=== PATIENT | male | born 1990 | race African-American/Black ===

== ENCOUNTER 2018-11-12 02:32 | Emergency (ER) | payer OTHER ==
[2018-11-12] MEDS: LORazepam 2 MG/ML INJ IV STA (02:45)
[2018-11-12] MEDS: SODIUM CHLORIDE 0.9% 1,000 ML IV ONE (02:45)
--- NOTE | 2018-11-12 03:06 | XR ---
EXAM: XR Chest, 2 Views CLINICAL HISTORY: Chest pain and shortness of breath. TECHNIQUE: Frontal and lateral views of the chest. COMPARISON: No relevant prior studies available. FINDINGS: Lungs: Diminished lung volumes without definite focal consolidation. Pulmonary vascular crowding is presumed related to poor lung expansion. Pleural space: Unremarkable. No pneumothorax. Heart: Unremarkable. No cardiomegaly. Mediastinum: Unremarkable. Bones/joints: Unremarkable. IMPRESSION: Diminished lung volumes without focal consolidation or definite acute cardiopulmonary process identified.
--- NOTE | 2018-11-12 03:23 | ED ---
Chest Pain HPI - General Chief Complaint: Chest Pain Stated Complaint: SOB, Chest Pain Time Seen by Provider: 11/12/18 02:35 Source: EMS Mode of arrival: EMS Limitations: no limitations - History of Present Illness Initial Comments: Cruz is a previously healthy 28-year-old -[place] male who presents the emergency department today via EMS for evaluation of left-sided chest pain and trouble breathing. Patient reports to smoking marijuana earlier in the evening, he subsequently developed a sharp left-sided chest pain which made it difficult to breathe. He then contacted EMS for transfer to the hospital. Patient has no known cardiac history no history of early cardiac in the family he has no history of DVT or PE. He denies any chest wall trauma. Patient denies any recent illness, fevers, chills, nausea, vomiting, URI-like symptoms. Patient reports the pain is left-sided sharp and constant with no exacerbating or relieving factors. There is no position that makes the pain more comfortable. Pain is not associated with any diaphoresis lightheadedness or near-syncope. - Related Data Allergies Allergy/AdvReac Type Severity Reaction Status Date / Time No Known Allergies Allergy Verified 11/12/18 02:40 Review of Systems ROS Statement: Those systems with pertinent positive or pertinent negative responses have been documented in the HPI. ROS Other: All systems not noted in ROS Statement are negative. EKG Findings - EKG Comments: EKG Findings:: EKG obtained at 2:38 AM, rate is 110 rhythm is sinus tachycardia there is a normal axis there are normal intervals there are no acute ST elevations or depressions there is no evidence of acute ischemia or infarction. There is significant artifact but no acute findings on EKG. Past Medical History Past Medical History: No Reported History History of Any Multi-Drug Resistant Organisms: None Reported Past Surgical History: No Surgical Hx Reported Past Psychological History: No Psychological Hx Reported Smoking Status: Current every day smoker Past Alcohol Use History: Occasional Past Drug Use History: Marijuana General Exam - General Exam Comments Initial Comments: Physical Exam GENERAL: Patient is well-developed and well-nourished. Patient is nontoxic and well-hydrated and is in no distress. Patient smells strongly of marijuana HENT: Normocephalic, Atraumatic. EYES: PERRL, EOMI PULMONARY: Unlabored respirations. No audible rales rhonchi or wheezing was noted. CARDIOVASCULAR: There is a regular rate and rhythm without any murmurs gallops or rubs. ABDOMEN: Soft and nontender with normal bowel sounds. SKIN: Skin is clear with no lesions or rashes and otherwise unremarkable. : Deferred NEUROLOGIC: Patient is alert and oriented x3. Moving all extremities spontaneously MUSCULOSKELETAL: Normal extremities with adequate strength and full range of motion. No lower extremity swelling or edema. No calf tenderness. PSYCHIATRIC: Normal psychiatric evaluation. Limitations: no limitations Limitations: no limitations Course Vital Signs 11/12/18 11/12/18 02:34 04:39 Temperature 99.4 F Pulse Rate 115 H 64 Respiratory 28 H 16 Rate Blood Pressure 150/82 98/54 O2 Sat by Pulse 97 97 Oximetry Chest Pain MDM - MDM The patient was seen and evaluated history obtained from the patient and EMS and signed patient received aspirin and nitro prior to arrival with known change in symptoms Heart score 0 Workup was evaluated troponin negative labs unremarkable EKG nonischemic chest x -ray unremarkable. Patient's pain resolved with Toradol. Patient was reevaluated he was sleeping comfortably, heart rate improved to the 80s oxygen saturation 99% on room air. Patient no acute distress. At this time I woke the patient advised him of the negative workup patient is agreeable to plan for discharge home at this time. Disposition Clinical Impression: Atypical chest pain Disposition: HOME SELF-CARE Condition: Good Is patient prescribed a controlled substance at d/c from ED?: No Referrals: None,Stated [Primary Care Provider] - 1-2 days
[2018-11-12 03:34] LABS: Basophils % (A) 0 %; Eosinophils # (A) 0.1 k/uL (0-0.7); Eosinophils % (A) 2 %; HCT 39.4 % (39.0-53.0); HGB 12.8 gm/dL (13.0-17.5); Lymphocytes # (A) 1.4 k/uL (1.0-4.8); Lymphocytes % (A) 15 %; MCH 27.5 pg (25.0-35.0); MCHC 32.5 g/dL (31.0-37.0); MCV 84.5 fL (80.0-100.0); Mean Platelet Volume 7.7; Monocytes # (A) 0.5 k/uL (0-1.0); Monocytes % (A) 6 %; Neutrophils # (A) 6.8 k/uL (1.3-7.7); Neutrophils % (A) 76 %; Platelet Count 167 k/uL (150-450); RBC 4.67 m/uL (4.30-5.90); RDW 12.7 % (11.5-15.5)
[2018-11-12] MEDS: KETOROLAC 30 MG/ML 1 ML VIAL IVP STA (03:42)
[2018-11-12 03:46] LABS: ALT 37 U/L (21-72); AST 54 U/L (17-59); Albumin 3.8 g/dL (3.5-5.0); Alkaline Phosphatase 40 U/L (38-126); Amylase 75 U/L (30-110); Anion Gap 7 mmol/L; Blood Urea Nitrogen 17 mg/dL (9-20); Calcium 9.1 mg/dL (8.4-10.2); Carbon Dioxide 27 mmol/L (22-30); Chloride 106 mmol/L (98-107); Glucose 76 mg/dL (74-99); Lipase 78 U/L (23-300); Magnesium 1.6 mg/dL (1.6-2.3); Potassium 3.8 mmol/L (3.5-5.1); Sodium 140 mmol/L (137-145); Total Bilirubin 0.9 mg/dL (0.2-1.3); Total Protein 6.6 g/dL (6.3-8.2)
[2018-11-12 04:03] LABS: Creatine Kinase 863 U/L (55-170)
[2018-11-12 04:16] LABS: Creatine Kinase MB 1.3 ng/mL (0.0-2.4); Troponin I <0.012 ng/mL (0.000-0.034)
[2018-11-12 04:23] LABS: D-Dimer <0.17 mg/L FEU (<0.60); Partial Thromboplastin Time 23.6 sec (22.0-30.0); Prothrombin Time 10.4 sec (9.0-12.0)
[2018-11-12 04:40] VITALS: RESP 16
[2018-11-12 05:50] VITALS: BP 108/71; PULSE 68; TEMP 98.4
== END 2018-11-12 05:49 | disposition home or self-care (01) ==
LOC: EC 02:32
DX: R07.89 Other chest pain (principal); F17.200 Nicotine dependence, unspecified, uncomplicated
CPT/HCPCS: 36415; 93005; 85379; 80053; 82150; 82550; 82553; 83690; 83735; 84484; 85025; 85610; 85730; 71046; 99285; 96374; 96375; 96361 ×3; J2060; J1885